=== PATIENT | female | born 1975 ===

== ENCOUNTER 2023-12-02 12:21 | Outpatient (REF) | payer OTHER, SELFPAY ==
--- NOTE | 2023-12-03 13:49 | MHC.AU.ANO ---
Adult Audiological Evaluation Date of Visit: 12/02/23 Reason for Appointment: Lauren reports difficulty understanding speech/following conversations, particularly in noise, over the last year or so. She also reports sensitivity to some high-pitched sounds at work--she describes her sensitivity as an extreme irritability caused by the sound, along with a physical sensation of tension. Lauren notes she feels this sensation at home as well, not associated with sounds, but generally feels on-edge and notes she has a history of panic attacks and has been taking medication for anxiety for the last few years, managed by her PCP. She notes she has discussed pursuing a Psychologist but has difficulty finding a provider with availability. Lauren experiences a low-level tinnitus, only noticeable in very quiet environments and easily masked using environmental noise such as a fan. She does find the tinnitus bothersome when she focuses on it. In addition to her recent difficulty following conversations, Lauren notes concerns about her memory, mixing up words, clumsiness, and misspelling things. She states she saw a neurologist who did not have any recommendations for her at this time, though noted she felt dismissed by the provider. She had her hearing tested at [facility] in July 2023, who reports borderline normal hearing and suggested CAP evaluation. No other otologic concerns reported. Denies family history of hearing loss, history of noise exposure. Does patient feel they have a hearing loss?: Yes If Yes, Which Ear?: Both Ears When Was Hearing Difficulty First Noticed?: 1 year ago Has hearing been tested previously?: Yes Previous Hearing Test Results: Borderline normal - [facility] [place] Hearing Handicap Inventory: HHIE SCORE: 18 Based on HHIE score, patient has: Mild to moderate perceived hearing handicap Ear History: Ear Deformity: None Reported Recent Ear Drainage: None Reported Recent Ear Pain: None Reported Family History of Hearing Loss?: No Recent Ear Infections: None Reported Ear Infections in Childhood: None Reported History of Ear Wax Buildup: None Reported Previous Ear Surgery: None Reported Bothersome Tinnitus/Ringing/Noises in Ears: Both Ears Ear used on the phone: Right Ear Blocked/Full Sensation in Ear(s): None Reported History of occupational noise exposure?: No History: No Medical History: Medical History: Autoimmune Disease Headache Tobacco Use Medical History: Right knee sugery age 15, childbirth x2 Allergies: eggplant, seasonal Medication List: Trazadone, Fluoxetine, Omeprazole, Linzess, Welbutrin, Biotin, multivitamin, B12 Otoscopy: Right Ear: Unremarkable Left Ear: Unremarkable Tympanometry: Tympanometry performed due to: To assess state of PE tubes Right Ear: Normal Middle Ear System (Type A) Left Ear: Normal Middle Ear System (Type A) Acoustic Reflexes: Did not test due to patient sound tolerance issues Otoacoustic Emissions Frequency Range Used: 1.6-8 kHz Right Ear Results: Reduced/absent Analysis: Reduced/Absent emissions suggest cochlear dysfunction Left Ear Results: Reduced/absent Analysis: Reduced/Absent emissions suggest cochlear dysfunction Hearing Evaluation: Transducer(s) Used: Insert Earphones Bone Conduction Method: Conventional Audiometry Stimuli Used: Pure Tones Right Ear: Description of Hearing: Borderline normal hearing Left Ear: Description of Hearing: Borderline normal hearing Speech Recognition Threshold (SRT): Method Used: Monitored Live Voice Stimuli Used: Spondees Right Ear: 15 dB HL Left Ear: 15 dB HL Word Discrimination: Method: Recorded Word Lists Used: NU6 3A Right Ear: 100% @ 50 dB HL Left Ear: 100% @ 50 dB HL Uncomfortable Loudness Level (UCL): Binaural: 85 dB at 500, 1000, 2000, 4000 Hz QuickSIN: 9dB SNR loss Lauren struggled with this task, with responses that seemed inconsistent with the amount of noise. She noted that she was having a hard time remembering what the sentence was even though she could hear it, and was very upset during testing. Auditory Continuous Performance Test: Passed SCAN-3: Gap detection: pass Auditory Figure-Ground: pass Competing Words-Free Recall: fail Interpretation of Results: Lauren presents with borderline normal hearing. These borderline thresholds may be responsible for some of the difficulty she notices understanding speech in noise; research also supports increased difficulty understanding speech in noise after the age of 40 or so, regardless of hearing thresholds. Her description of her difficulty with the QuickSIN as well as her concerns surrounding memory, mixing up words, and misspelling words suggest a Speech, Language, and Cognition evaluation with the Speech department would be an appropriate next step prior to determining if a full Central Auditory Processing evaluation is warranted. Though she did not pass the SCAN-3 auditory processing screening, these additional concerns would be better addressed by the Speech, Language, Cognition evaluation as this assesses attention, memory, organization and planning, amongst other potentially relevant domains that CAP testing does not. Recommendations: Audiological re-evaluation in one year. Pursue Speech, Language, and Cognition evaluation with [employer]. Diagnosis: Primary Diagnosis: H93.293 Abnormal Auditory Perception Services Performed: Comprehensive Audiological Evaluation (CPT 36319) Diagnostic Otoacoustic Emissions (CPT 70297, 26+TC) Tympanometry (CPT 97377) Unlisted Otorhinolaryngological Service or Procedure (CPT 78403) Signature: Provider: Neida Sullivan, CCC-A
== END 2023-12-02 12:22 | disposition home or self-care (01) ==
LOC: HO.SH 12:21
PROVIDERS: PCP Internal Medicine; Visit Provider Physician Assistant
DX: H93.293 Other abnormal auditory perceptions, bilateral (principal)
CPT/HCPCS: 92557; 92567; 92588; 92700